=== PATIENT | male | born 1970 | race Two or more races ===

== ENCOUNTER 2024-09-09 14:25 | Emergency (ER) | payer MEDICAID ==
[~2024-09-09] VITALS: Ht 170.2 cm; Wt 92.5 kg
[2024-09-09 14:45] LABS: BASOPHILS % (AUTO) 0.3 % (0.0-2.0); HEMOGLOBIN 14.2 g/dL (12.5-16.3); LYMPHOCYTES # (AUTO) 1.2 K/uL (0.8-4.8); LYMPHOCYTES % (AUTO) 16.4 % (20.5-51.5); MEAN CORPUSCULAR HEMOGLOBIN 28.6 uug (23.8-33.4); MEAN CORPUSCULAR HGB CONC 34 g/dL (32.5-36.3); MEAN CORPUSCULAR VOLUME 84.2 fL (73.0-96.2); MONOCYTES # (AUTO) 0.4 K/uL (0.1-1.30); MONOCYTES % (AUTO) 5.3 % (0.0-11.0); NEUTROPHILS # (AUTO) 5.7 K/uL (1.8-8.9); PLATELET COUNT (AUTO) 348 K/uL (152-348); RED BLOOD CELL COUNT(AUTO) 4.99 MIL/uL (4.06-5.63); RED CELL DISTRIBUTION WIDTH 13.7 % (12.1-16.2); WHITE BLOOD COUNT (AUTO) 7.3 K/uL (3.6-10.2)
[2024-09-09] MEDS ORDERED: CLONIDINE HCL 0.2 MG TABLET PO ONE (14:45)
[2024-09-09 14:46] LABS: DIFFERENTIAL COMMENT 1
[2024-09-09 14:53] LABS: CALCIUM 9.3 mg/dL (8.5-10.1); CREATININE 0.8 mg/dL (0.6-1.3); POTASSIUM 4.3 mmol/L (3.5-5.1)
[2024-09-09 14:58] LABS: ALBUMIN 3.5 g/dL (3.4-5.0); BILIRUBIN,DIRECT 0.2 mg/dL (0.0-0.2); BILIRUBIN,TOTAL 0.7 mg/dL (0.2-1.0); TOTAL PROTEIN, SERUM 8.1 g/dL (6.4-8.2)
[2024-09-09] MEDS ORDERED: hydrALAZINE HCL 20 MG/1 ML VIAL ONE (15:14)
[2024-09-09] MEDS ORDERED: CLONIDINE HCL 0.2 MG TABLET ONE (15:15)
[2024-09-09] MEDS: hydrALAZINE HCL 20 MG/1 ML VIAL IV ONE (15:17)
[2024-09-09] MEDS ORDERED: CLON0.1T PO (17:22)
[2024-09-09] MEDS ORDERED: LISI40TA13 PO (17:22)
[2024-09-09 17:27] VITALS: BP 151/81; O2SAT 97
== END 2024-09-09 17:37 | disposition home or self-care (01) ==
LOC: ER 14:46
DX: I10 Essential (primary) hypertension (principal); R51.9 Headache, unspecified; E11.9 Type 2 diabetes mellitus without complications; R11.2 Nausea with vomiting, unspecified; R42 Dizziness and giddiness
CPT/HCPCS: 99285; 96374; 80076; 80048; 83036; 83735; 85025; J0360; 36415; A4606; A4663